=== PATIENT | male | born 1950 | race Caucasian/White ===

== ENCOUNTER → 2016-12-09 | Day surgery (SDC) | payer MEDICARE ==
[~2016-12-09] MED LIST: DEXAMETHASONE SOD PHOS 4 MG/ML VIAL ONE; EPINEPHrine HCL (1:1000) 1 MG/ML VIAL ONE; HYDROCHLOROTHIAZIDE PO; KETOROLAC TROMETHAMINE 30 MG/ML (IVP) VIAL ONE; LACTATED RINGER'S 1000 ML INJ 1,000 ML ONE; MIDAZOLAM HCL 2 MG/2 ML VIAL ONE; MORPHINE SULFATE 4 MG/ML INJ ONE; MOXIFLOXACIN 0.5% OPHT SOLN 3 ML BTL ONE; ONDANSETRON HCL 4 MG/2 ML VIAL IV PUSH ONE; PHENYLEPHRINE HCL 10% OPTH SOLN 5 ML BTL ONE; PROPOFOL 200 MG/20 ML AMP IV ONE; SODIUM CHLORIDE 0.9% INJ 10 ML ONE; TESTIM ID; TETRACAINE 0.5% OPTH SOLN 4 ML BTL ONE; TRIAMCINOLONE ACETONIDE 40 MG/ML VIAL ONE; VALSARTAN PO; ceFAZolin INJ 1,000 MG VIAL ONE; prednisoLONE ACETATE 1% OPHT SUSP 5 ML BTL ONE
--- NOTE | 2016-12-13 17:21 | MP ---
cc: ROLO CHAWLA MD DATE OF SURGERY: PREOPERATIVE DIAGNOSIS: Dislocated posterior chamber intraocular lens, retinal detachment status post repair, left eye. POSTOPERATIVE DIAGNOSIS: Dislocated posterior chamber intraocular lens, retinal detachment status post repair, left eye. OPERATIVE PROCEDURE PERFORMED: Pars plana vitrectomy and posterior chamber intraocular lens extraction with anterior chamber intraocular lens implantation, endolaser, intravitreal Kenalog, left eye. SURGEON: Rolo Chawla MD. COMPLICATIONS: None. ESTIMATED BLOOD LOSS: Less than 1 cc. ANESTHESIA: Dr. Holcomb general. INDICATIONS FOR THE PROCEDURE: This delightful patient previously underwent retinal detachment repair with a scleral buckle placement. The patient presented with significant worsening of his visual acuity and was found to have a dislocated posterior chamber intraocular lens in his left eye. The patient elected for surgical correction. DESCRIPTION OF THE PROCEDURE IN DETAIL: After informed consent was obtained, the patient was brought to the operating room and general anesthesia was established. The left eye was prepped and draped in sterile fashion with Betadine in the conjunctival fornix. The three port pars plana vitrectomy was established with self-retaining infusion cannula. The posterior chamber intraocular lens was found to be dislocated into the posterior chamber with surrounding capsule. The haptics of the intraocular lens were seen to be misshapen. The dislocated posterior chamber intraocular lens with the capsule and retained cortex was brought into the anterior segment. A scleral tunnel was fashioned with a crescent blade and a keratome. The posterior chamber intraocular lens and capsule complex was removed via the scleral tunnel. An anterior chamber intraocular lens MTA3UO of 12.5 diopters was inserted into the anterior chamber and rotated into position. A superior peripheral iridectomy was made with the vitrector. The posterior segment was then visualized. Vitreous traction was removed. Endolaser was applied surrounding previous retinal detachment repair. Intravitreal Kenalog was instilled. The trocars were removed and sclerotomies closed. The scleral tunnel was closed with 7-0 Vicryl sutures and conjunctiva reapproximated with 6-0 plain gut. Subconjunctival injections of Ancef and dexamethasone were given. The eye was patched with Tobramycin ointment. The patient was brought to the recovery room in stable condition and will continue followup with [facility] for his postoperative care. MD KASEY Holder/SHANAE /10:48 PM /5:09 PM
== END | disposition home or self-care (01) ==
LOC: ESDC 08:47
PROVIDERS: ATTEND Ophthalmology
DX: T85.22XA Displacement of intraocular lens, initial encounter (principal); H33.22 Serous retinal detachment, left eye
CPT/HCPCS: 00142; 00145; 66825; 67108; J0171; J0690; J1100; J1885; J2250; J2270; J2405; J3010; J3301; J7120; V2630